=== PATIENT | male | born 1980 | race Caucasian/White ===

== ENCOUNTER 2023-09-26 00:28 | Emergency (ER) | payer SELFPAY ==
[~2023-09-26] VITALS: Ht 170.2 cm; Wt 106.3 kg
[2023-09-26 00:34] VITALS: TEMP 98.5; O2SAT 97
[2023-09-26 01:04] LABS: BASOPHILS % 0.4 % (0.0-2.0); EOSINOPHILS % 0.1 % (0.0-5.0); HEMOGLOBIN. 15.5 g/dL (14.0-18.0); LYMPHOCYTES % 11.9 % (20.0-50.0); MEAN CORPUSCULAR HEMOGLOBIN 30.1 pg (28.0-32.0); MEAN CORPUSCULAR HGB CONC 33.7 g/dL (31.0-37.0); MEAN CORPUSCULAR VOLUME 89.3 fL (80.0-94.0); MONOCYTES % 5.7 % (2.0-8.0); NEUTROPHILS % 81.9 % (40.0-76.0); PLATELET 363 x1000/uL (130-400); RED BLOOD CELL COUNT 5.15 mill/uL (4.7-6.1); RED CELL DISTRIBUTION WIDTH 13.3 % (11.6-14.6)
[2023-09-26 01:09] LABS: CHLORIDE 103 mEq/L (98-107); POTASSIUM 3.9 mEq/L (3.5-5.1); SODIUM 136 mEq/L (136-145)
[2023-09-26 01:10] LABS: CALCIUM 9.2 mg/dL (8.7-10.4); CARBON DIOXIDE 27 mEq/L (21-32)
[2023-09-26 01:15] LABS: GLUCOSE 166 mg/dL (70-105); UREA NITROGEN BLOOD 15 mg/dL (9-23)
[2023-09-26 01:17] LABS: ALANINE AMINOTRANSFERASE 30 IU/L (10-49); ALBUMIN 4.6 g/dL (3.2-4.8); ASPARTATE AMINOTRANSFERASE 17 IU/L (<34); BILIRUBIN TOTAL 0.5 mg/dL (0.1-1.0); PROTEIN TOTAL 7.9 g/dL (6.0-8.3)
[2023-09-26 01:21] LABS: ETHANOL BLOOD < 10 mg/dL (<10); TROPONIN I HIGH SENSITIVITY < 4 ng/L (3.0-53)
[2023-09-26 01:57] LABS: INR 0.9; PARTIAL THROMBOPLASTIN TIME 28.2 sec (23.4-31.0); PROTHROMBIN TIME 10.3 sec (9.6-11.0)
[2023-09-26 04:38] VITALS: BP 138/81; PULSE 57; RESP 20
== END 2023-09-26 04:44 | disposition home or self-care (01) ==
LOC: ER 00:28
DX: G51.0 Bell's palsy (principal)
CPT/HCPCS: 36415; 71045; 80053; 80320; 82962; 83880; 84484; 85025; 93005; 99285; G0480

== ENCOUNTER 2023-09-30 18:37 | Emergency (ER) | payer SELFPAY ==
[~2023-09-30] VITALS: Ht 172.7 cm; Wt 118.0 kg
[2023-09-30 18:40] VITALS: O2SAT 97
[2023-09-30 22:20] VITALS: BP 144/72; PULSE 87; RESP 13; TEMP 98.1
== END 2023-09-30 22:51 | disposition home or self-care (01) ==
LOC: ER 18:37
DX: G51.0 Bell's palsy (principal)
CPT/HCPCS: 99281